=== PATIENT | male | born 1990 | race Asian ===

== ENCOUNTER 2024-04-04 17:46 | Emergency (ER) | payer BC, SELFPAY ==
[2024-04-04 18:03] VITALS: BP 169/108
[2024-04-04 18:33] LABS: % Basophils 0.4 % (0-2); % Eosinophils 4.5 % (0-6); % Immature Granulocytes 0.4 % (0-0.5); % Monocytes 7.9 % (1.7-9.3); % Neutrophils 61.8 % (42.2-75.2); Absolute Eosinophils 0.3 10^3/uL (0-0.7); Absolute Lymphocytes 1.9 10^3/uL (1.2-3.4); Absolute Monocytes 0.6 10^3/uL (0.1-0.6); Absolute Neutrophils 4.7 10^3/uL (1.4-6.5); Hematocrit 48.1 % (39.0-52.0); Hemoglobin 16.6 g/dL (13.0-18.0); Mean Corp Hgb Conc. 34.5 g/dL (33.0-37.0); Mean Corpuscular Hgb 29.8 pg (27.0-31.0); Mean Corpuscular Volume 86.4 fL (80.0-94.0); Mean Platelet Volume 10.2 fL (7.4-10.4); Nucleated Red Blood Cells % 0 % (-); Platelet Count 209 10^3/uL (130-400); Red Blood Cell Count 5.57 10^6/uL (4.70-6.10); Red Cell Dist. Width 12.3 % (11.5-14.5); White Blood Cell Count 7.6 10^3/uL (4.8-10.8)
[2024-04-04 18:42] LABS: APTT 25.9 Sec (23.4-35.0)
[2024-04-04 18:47] LABS: ALT (SGPT) 58 U/L (0-50); AST (SGOT) 44 U/L (17-59); Albumin 5.1 g/dl (3.5-5.0); Alkaline Phosphatase 52 U/L (38-126); Blood Urea Nitrogen 29 mg/dl (9-20); Calcium 9.8 mg/dl (8.4-10.2); Carbon Dioxide 30 mmol/L (22-30); Chloride 99 mmol/L (98-107); Glucose 94 mg/dl (70-99); Potassium 4.3 mmol/L (3.5-5.1); Sodium 139 mmol/L (135-145); Total Bilirubin 0.4 mg/dl (0.2-1.3); eGFR > 60.00
[2024-04-04 18:53] LABS: COVID-19 Antigen Negative (Negative)
[2024-04-04 18:54] LABS: Lipase 213 U/L (23-300)
[2024-04-04 18:56] LABS: Troponin I < 0.012 ng/ml
--- NOTE | 2024-04-04 19:49 | ED.GENMED ---
History of Present Illness
General
Chief Complaint: Head Injury
Source: patient
Exam Limitations: none
Time Seen by Provider: 04/04/24 18:58
Nursing documentation reviewed up to this point in time: agreed with
History of Present Illness
History of Present Illness:
pt is a 34 y/o M with h/o allergies, asthma
here with 1 mo of symptoms
multple complaints:
1. hit head 1 mo ago on a piece of gym equipment
had small laceration (top of head)
no LOC
no vomiting
nex tday went to urgent care and had mild headache, photosensitivity
told h probably had a mild concussion
didn't really do brain rest
has coitniued to have mild sypmtoms, occ headaches, some photosensitivity
no confusion,word finding issues etc
able to work
2.
cough x 1 mo
mostly dry
tastes metallic in his mouth
no ehmoptysis or vomiting blood
no blood in mouth or nose
no nasal congestion
coughs frquently
tried inhaler without rleief
no fever, sob
but he felt some burning chest pain yesterday and that prompted today's visit
3. he has chornic itching that he has seen neurologist for who ordered MRI of his brain but pt never got it
this is not a new symptoms but he mentioned it
Past History
Past History
ED Past Medical History: Other (Diverticulitis)
ED Past Surgical History: Orthopedic
Social History
Tobacco: Non-smoker
Alcohol: None
Review of Systems
Review of Systems
Allergies reviewed?: Yes
All Other Systems: Not applicable
Phy Exam
Physical Exam
Physical Exam:
GENERAL: Alert , in no apparent distress
HEAD: NCAT
EYE: pupils equal and reactive, no nystagmus, no photophobia
NECK: Supple,full rom, nontender
ENT: o/p clr, mmm. Boggy nasal mucosa with some erythema, no postnasal drip obvious on exam
CARDIAC: Regular rate and rhythm . no edema
LUNGS: Clear breath sounds bilaterally, no acute respiratory distress, no wheezes/rales/rhonchi no cough while I am in the room
ABDOMEN: Soft, without focal tenderness, no r/g, no cvat
NEUROLOGICAL: Alert and orientedx 4, cn intact, no facial asymmetry, 5/5 strength in UE/LE, sensation intact, romberg neg, ambulates without assistance, neg pronator drift
SKIN: Warm and dry, skin intact.
MUSCULOSKELETAL: No edema, well perfused.
PSYCH: Normal and appropriate interaction.
Course
Orders/Labs/Results
Orders:
Orders
04/04/24 17:48
EKG [Electrocardiogram (*1)] Urgent
Reason for Study: Chest Pain
EKG- Treatment ONCE
04/04/24 18:07
CR Chest - 2 Views Urgent
Comment:
Reason For Exam: cough
04/04/24 18:17
COVID-19 Antigen Urgent
Source: Nasal Swab
Complete Blood Count/With Diff Urgent
Comprehensive Metabolic Panel Urgent
Lipase Urgent
PTT Urgent
Troponin I Urgent
Influenza A+B Rapid Molecular Urgent
BRENNEN Source: Nasal Swab
Specimen Description:
Abnormal Lab Results
04/04/24
18:17
BUN 29 H mg/dl
(9-20)
Creatinine 1.4 H mg/dL
(0.7-1.3)
ALT 58 H U/L
(0-50)
Albumin 5.1 H g/dl
(3.5-5.0)
04/04/24 18:17
04/04/24 18:17
Vital Signs
Blood pressure: 140/90
Initial and Last Documented VS:
Initial Vital Signs
Temp Pulse Resp BP Pulse Ox
36.7 C 68 16 169/108 99
04/04/24 18:03 04/04/24 18:03 04/04/24 18:03 04/04/24 18:03 04/04/24 18:03
Last Documented Vital Signs
Temp Pulse Resp BP Pulse Ox
36.7 C 68 16 169/108 99
04/04/24 18:03 04/04/24 18:03 04/04/24 18:03 04/04/24 18:03 04/04/24 19:03
MDM/Problems Addressed
Differential Diagnosis Includes:
bronchitis, sinusitis, GERD, anxiety
less likely PE, acs, myocarditis
concussion/post ocncussion
brain turmo
MDM/Problems Addressed:
34-year-old male with 1 month of symptoms both with postconcussive symptoms after hitting his head without loss consciousness that are mild but have not resolved as well as a cough for a month. Is mostly dry nonproductive. He feels like he tastes
metallic in the back of his mouth. Initially told triage nurse that he tasted blood but what he was trying to say was a taste like metal. He has never had an issue with chronic GERD. He does have some anxiety about the symptoms. He developed
some burning in his chest yesterday and that prompted today's visit. He otherwise would not have come in for the concussion symptoms. Previously he seen a neurologist for a very strange itching sensation that he gets when he exercises. He saw
neurologist who put him on gabapentin but he stopped taking this. They ordered an MRI but he never got it done.
He has not had any new changes to his neurosymptoms. He is very well-appearing and has no neurofindings on exam. As far as his cough goes he does have nasal mucosal edema and erythema but clear lungs. His workup here is unremarkable, he does have
an S1Q3T3 that he had before and he is not tachycardic or hypoxic without PE risk factors and I cannot PERC him out.
He has a clear chest x-ray independently reviewed by me and normal white count. However given his length of symptoms I will cover him for sinusitis as a potential cause for headache as well as his nasal symptoms and cough. If this does not resolve
I would consider Pepcid twice daily for a week or 2 to see if this helps. He should follow-up with his outpatient physician as well as a neurologist. I did inform him of his creatinine being 1.4 which has been before. He is hypertensive 140/90
improved from arrival but this is still elevated. He probably has a degree of healthcare related anxiety however I fear that he is not getting this checked out. He was encouraged to follow-up.
I did offer him a CAT scan of his brain which would be a low yield study for postconcussive syndrome but nevertheless I did offer it. He would prefer to go home at this time, there is a delay in CAT scan and he was aware of this. Return
precautions given
*Critical Care Note
Total Time (30-74mins, 75-104mins- exclusive of procedures): Not Applicable
ED Attending Note
-
Portions of this chart may have been created with voice recognition software.� Occasional wrong word or��sound alike� substitutions may have occurred due to the inherent limitations of voice recognition software.
Discharge Plan
Departure
Patient Disposition: Home (Routine Discharge)
Date of Disposition: 04/04/24
Time of Disposition: 20:08
Patient with high blood pressure during this ER visit?: Yes
Condition: Fair
Covid-19: Not Applicable
Discharge Problem:
Sinusitis, Cough, Post concussive syndrome
Instructions: Sinusitis in adults - ED discharge instructions, BLOOD PRESSURE
Prescriptions:
New
amoxicillin-pot clavulanate 875-125 mg tablet
1 tab PO BID Qty: 14 0RF
Referrals:
Tien Santos MD [Family Provider] - Follow up in 2-3 days
Activity Restrictions/Additional Instructions:
As far as your symptoms go it you could have a sinus infection so retreating with Augmentin twice a day for 7 days. If this does not help as well as using your nasal steroid spray you should try [id number] Pepcid twice a day 20 mg for least a
week or 2 to see if this helps your cough. It could be coming from acid reflux. As far as your head injury goes we did offer you a CAT scan but at this time you declined. Please remember to follow-up with your neurologist or your family doctor.
You may need to have more neuroimaging. Return to the ER for any significant concerns
YOUR BLOOD PORESSURE IS ELEVATED
BE JESSICA ETO HAVE THIS RECHECKED
ONE OF YOUR KIDNEY MARKERS YOUR CREATININE IS ALSO A LITTL EHIGH
PLEASE HAVE THIS RECHECKED BY YOUR DOCTOR
Interventions
Interventions:
*Risk Screen - Suicide Last Done: 04/04/24 19:04
*General Assessment Last Done: 04/04/24 19:04
*Neglect/Abuse Screening Last Done: 04/04/24 19:04
ED- Neurological Assessment Last Done: 04/04/24 19:02
ED- Pulmonary Assessment Last Done: 04/04/24 19:03
Discharge Date and Time
Print Language: [place]
[2024-04-04 20:02] VITALS: BP 161/91
[2024-04-04 20:32] VITALS: BP 147/93
== END 2024-04-04 20:36 | disposition home or self-care (01) ==
LOC: EMR 17:46
PROVIDERS: Emergency Medicine; EMERGENCY PHYSICIAN Emergency Medicine; FAMILY PHYSICIAN Family Medicine
DX: J32.9 Chronic sinusitis, unspecified (principal); F07.81 Postconcussional syndrome; R05.9 Cough, unspecified; J45.909 Unspecified asthma, uncomplicated; R03.0 Elevated blood-pressure reading, without diagnosis of hypertension
CPT/HCPCS: 99285; 71046; 80053; 83690; 84484; 85025; 85730; 87502; 87811; 93005